=== PATIENT | female | born 1925 | race Native Hawaiian/Other Pacific Islander ===

== ENCOUNTER 2017-01-04 07:51 | Day surgery (SDC) | payer MEDICARE, MEDICAID ==
[2017-01-04] MEDS: Chondroitin/Hyaluronate Opth Syringe KIT (0.55 ml-0.5 ml) IO ONE ×3 (07:46→09:24)
[2017-01-04] MEDS: Carbachol 0.01% IO ONE ×3 (07:46→09:24)
[~2017-01-04 07:51] MED LIST: Ciprofloxacin 0.3% OPTH SOLN OS SCH; Flurbiprofen 0.03% Opht SOLN OS SCH; Lactated Ringer's 1,000 ML IV ONE; Lactated Ringer's 500 ML IV ONE; Phenylephrine 2.5% Opht Soln OS SCH; Tobramycin/Dexamethasone OPHT OINT ONE; Tropicamide 1% Opht SOLUTION OS SCH; acetaZOLAMIDE 500 mg SR Cap PO ONE
[2017-01-04] MEDS: Lidocaine 2% Inj (20ml) ONE ×2 (07:57→09:19)
[2017-01-04] MEDS: Povidone Iodine Ophthalmic 5% Soln ONE ×2 (07:57→09:18)
[2017-01-04] MEDS: Hyaluronidase Human, Recombi 150 U/ML VIAL ONE ×2 (07:57→09:19)
[2017-01-04] MEDS: Tetracaine 0.5% Ophth (OR ONLY) ONE ×2 (08:00→09:24)
[2017-01-04] MEDS ORDERED: Lactated Ringer's 500 ML IV ONE (09:05)
[2017-01-04] MEDS ORDERED: Midazolam 2 MG/2 ML VIAL ONE (09:13)
[2017-01-04] MEDS ORDERED: acetaZOLAMIDE 500 mg SR Cap PO ONE (10:42)
[2017-01-04 12:07] VITALS: RESP 15; O2SAT 100
[2017-01-04 12:12] VITALS: BP 135/57; PULSE 61; TEMP 98
--- NOTE | 2017-01-06 10:41 | OP ---
PROCEDURE DATE: 01/04/2017 PREOPERATIVE DIAGNOSIS: Cataract, left eye. POSTOPERATIVE DIAGNOSIS: Cataract, left eye. PROCEDURE: Phacoemulsification, left eye and insertion of posterior chamber implant. SURGEON: Jorge Manzano MD CO-SURGEON: Guanako Coats MD ANESTHESIA: Local IV sedation. DESCRIPTION OF PROCEDURE: The patient was brought into the operating room, placed in supine position, prepped and draped in the usual fashion for ophthalmic surgery. Lid speculum was inserted, lids and exposing globe. A side-port incision was made superiorly and inferiorly with a disposable sharp blade. Anterior chamber was filled with Viscoat. A near clear corneal incision was made temporally with a 2.75-mm keratome. Capsulorrhexis was then performed with Utrata forceps. Hydrodissection carried out with balanced salt solution. Nucleus was phacoemulsified. Remaining cortical fragments were removed with a split irrigation and aspiration system. The capsular sac was filled with Provisc. A posterior chamber lens was then injected into the capsular sac and rotated into horizontal position. Provisc was aspirated out of the anterior chamber. The pupil was constricted with Miochol. The wound was found to be watertight. Topical Betadine, Timoptic, and TobraDex ointment and pressure patch were applied. The patient tolerated the procedure well. Jorge Manzano MD
== END 2017-01-04 11:32 | disposition home or self-care (01) ==
LOC: C.SDS 07:51
PROVIDERS: ATTEND Ophthalmology
DX: H25.12 Age-related nuclear cataract, left eye (principal)
CPT/HCPCS: 66984; J2250; J3010; J3470; J7120; V2632

== ENCOUNTER 2017-02-22 06:59 | Day surgery (SDC) | payer MEDICARE, MEDICAID ==
[2017-02-20 09:02] VITALS: BMI 21.8
[~2017-02-22 06:59] MED LIST changes: +Ciprofloxacin 0.3% OPTH SOLN OD SCH; -Ciprofloxacin 0.3% OPTH SOLN OS SCH; +Flurbiprofen 0.03% Opht SOLN OD SCH; -Flurbiprofen 0.03% Opht SOLN OS SCH; -Lactated Ringer's 1,000 ML IV ONE; +Phenylephrine 2.5% Opht Soln OD SCH; -Phenylephrine 2.5% Opht Soln OS SCH; -Tobramycin/Dexamethasone OPHT OINT ONE; +Tropicamide 1% Opht SOLUTION OD SCH; -Tropicamide 1% Opht SOLUTION OS SCH
[2017-02-22] MEDS ORDERED: Lactated Ringer's 1,000 ML IV ONE ×3 (08:00→11:25)
[2017-02-22] MEDS: Tetracaine 0.5% Ophth (OR ONLY) ONE ×2 (08:18→10:55)
[2017-02-22] MEDS: Povidone Iodine Ophthalmic 5% Soln ONE ×2 (08:19→10:55)
[2017-02-22] MEDS: Lidocaine 2% Inj (20ml) ONE ×2 (08:20→10:58)
[2017-02-22] MEDS: Hyaluronidase Human, Recombi 150 U/ML VIAL ONE ×2 (08:20→10:58)
[2017-02-22] MEDS: Carbachol 0.01% IO ONE ×2 (08:21→11:23)
[2017-02-22] MEDS: Chondroitin/Hyaluronate Opth Syringe KIT (0.55 ml-0.5 ml) IO ONE ×2 (08:21→11:23)
[2017-02-22] MEDS: Tobramycin/Dexamethasone OPHT OINT ONE ×2 (08:22→11:23)
[2017-02-22] MEDS ORDERED: Lactated Ringer's 500 ML IV ONE ×2 (10:48→11:25)
[2017-02-22] MEDS ORDERED: acetaZOLAMIDE 500 mg SR Cap PO ONE (11:30)
[2017-02-22 11:39] VITALS: O2SAT 100
[2017-02-22 12:14] VITALS: BP 117/79; PULSE 76; RESP 18; TEMP 97.3
--- NOTE | 2017-02-22 21:49 | OP ---
PROCEDURE DATE: 02/22/2017 PREOPERATIVE DIAGNOSIS: Cataract, right eye. POSTOPERATIVE DIAGNOSIS: Cataract, right eye. PROCEDURE: Phacoemulsification, right eye, and insertion of posterior chamber implant. SURGEON: Jorge Manzano M.D. CO-SURGEON: Guanako Coats MD TYPE OF ANESTHESIA: Local with IV sedation. DESCRIPTION OF PROCEDURE: The patient was brought into the operating room, placed in supine position, prepped and draped in the usual fashion for ophthalmic surgery. Lid speculum was inserted, lids and exposing globe. A side-port incision was made superiorly and inferiorly with a disposable sharp blade. Anterior chamber was filled with Viscoat. A near clear corneal incision was made temporally with a 2.75-mm keratome. Capsulorrhexis was then performed with Utrata forceps. Hydrodissection carried out with balanced salt solution. Nucleus was phacoemulsified. Remaining cortical fragments were removed with a split irrigation and aspiration system. The capsular sac was filled with Provisc. A posterior chamber lens was then injected into the capsular sac and rotated into horizontal position. Provisc was aspirated out of the anterior chamber. The pupil was constricted with Miochol. The wound was found to be watertight. Topical Betadine, Timoptic, and TobraDex ointment and pressure patch were applied. The patient tolerated the procedure well. Jorge Manzano MD
== END 2017-02-22 12:34 | disposition home or self-care (01) ==
LOC: C.SDS 06:59
PROVIDERS: ATTEND Ophthalmology
DX: H26.9 Unspecified cataract (principal); I10 Essential (primary) hypertension; E03.9 Hypothyroidism, unspecified; H91.90 Unspecified hearing loss, unspecified ear; G25.2 Other specified forms of tremor; Z79.899 Other long term (current) drug therapy; Z79.82 Long term (current) use of aspirin; J45.909 Unspecified asthma, uncomplicated
CPT/HCPCS: 66984; J3470; J7120